=== PATIENT | male | born 1980 | race Asian ===

== ENCOUNTER 2019-05-09 11:06 | Emergency (ER) | payer BC, OTHER ==
[~2019-05-09] VITALS: Ht 172.7 cm; Wt 68.9 kg
[2019-05-09] MEDS ORDERED: SODIUM CHLORIDE 0.9% 1,000 ML IV ONE ×2 (13:45→14:30)
[2019-05-09] MEDS ORDERED: ACETAMINOPHEN 325 MG TAB PO ONE (14:00)
[2019-05-09] MEDS ORDERED: IBUPROFEN 800 MG TAB PO ONE (14:00)
[2019-05-09 15:19] VITALS: BP 103/58
== END 2019-05-09 15:21 | disposition home or self-care (01) ==
LOC: ER 11:06
DX: J09.X2 Influenza due to identified novel influenza A virus with other respiratory manifestations (principal); R19.7 Diarrhea, unspecified; R51 Headache; R42 Dizziness and giddiness
CPT/HCPCS: 71046; 87804; 96360; 96361; 99284; J7030

== ENCOUNTER 2020-09-28 18:22 | Emergency (ER) | payer BC ==
[~2020-09-28] VITALS: Ht 172.7 cm; Wt 70.3 kg
[2020-09-28 18:24] VITALS: BP 151/96
[2020-09-28] MEDS ORDERED: KETOROLAC TROMETH 60MG/2ML VIAL IM ONE (19:30)
== END 2020-09-28 20:39 | disposition home or self-care (01) ==
LOC: ER 18:22
DX: S39.012A Strain of muscle, fascia and tendon of lower back, initial encounter (principal); M54.42 Lumbago with sciatica, left side; X58.XXXA Exposure to other specified factors, initial encounter; Y93.89 Activity, other specified; Y92.89 Other specified places as the place of occurrence of the external cause; Y99.8 Other external cause status
CPT/HCPCS: 96372; 99283; J1885